=== PATIENT | female | born 1990 | race Caucasian/White ===

== ENCOUNTER 2021-12-13 18:45 | Emergency (ER) | payer OTHER ==
[2021-12-13] MEDS ORDERED: Sodium Chloride 0.9% 10 ML Syringe FLUSH PRN (19:01)
[2021-12-13] MEDS: LORazepam 1 MG Tab PO ONE (19:15)
[2021-12-13] MEDS: Ibuprofen 200 MG Tab PO ONE (19:47)
[2021-12-13 19:59] LABS: ANION GAP 16.5 mmol/L (5-15); CHLORIDE,CL 103 mmol/L (98-107); SODIUM,NA 139 mmol/L (136-145)
[2021-12-13 20:30] LABS: BARBITURATE SCREEN,URINE NEGATIVE (NEGATIVE); BENZODIAZEPINES SCREEN,URINE NEGATIVE (NEGATIVE); BUPRENORPHINE SCREEN,URINE NEGATIVE (NEGATIVE); METHAMPHETAMINE SCREEN, URINE NEGATIVE (NEGATIVE); THC SCREEN,URINE 50 NG/ML NEGATIVE (NEGATIVE)
== END 2021-12-13 21:00 | disposition home or self-care (01) ==
LOC: VM.ED 18:45
DX: R07.89 Other chest pain (principal); F41.0 Panic disorder [episodic paroxysmal anxiety]; F43.9 Reaction to severe stress, unspecified; Z88.5 Allergy status to narcotic agent; Z72.0 Tobacco use; Z20.822 Contact with and (suspected) exposure to COVID-19
CPT/HCPCS: 70450; 71045; 80053; 80305; 80307; 81001; 81025; 83605; 83735; 83880; 84100; 84443; 84484; 85025; 85379; 85610; 85730; 86140; 87635; 93005; 93010; 99284; 99285; A9270; 36415; U0002

== ENCOUNTER 2023-04-29 21:20 | Emergency (ER) | payer OTHER ==
[2023-04-29] MEDS ORDERED: Take Home: traMADol 50 MG, 4 Tab Pack PO ONE (22:47)
== END 2023-04-29 22:55 | disposition home or self-care (01) ==
LOC: VM.ED 21:20
DX: S90.31XA Contusion of right foot, initial encounter (principal); Z79.899 Other long term (current) drug therapy; W18.30XA Fall on same level, unspecified, initial encounter
CPT/HCPCS: 73630-RT; 99283; A9270-GY

== ENCOUNTER 2023-05-28 18:21 | Emergency (ER) | payer OTHER ==
[2023-05-28] MEDS ORDERED: Albuterol/Ipratropium 3.0-0.5 MG/3 ML Neb Soln NEB ONE (19:40)
[2023-05-28 19:49] LABS: BASOPHILS PERCENT AUTO 0.3 % (0.2-1.2); EOSINOPHILS ABSOLUTE AUTO 0.1 x10^3/uL (0.0-0.5); EOSINOPHILS PERCENT AUTO 1.4 % (0.0-4.0); HEMATOCRIT 39.8 % (33.0-47.0); LYMPHOCYTES ABSOLUTE AUTO 2.3 x10^3/uL (1.0-4.8); LYMPHOCYTES PERCENT AUTO 31.9 % (25.0-50.0); MEAN CORPUSCULAR HGB CONC 35.2 g/dL (32.0-36.0); MEAN CORPUSCULAR VOLUME 88.2 fL (78.0-93.0); MONOCYTES ABSOLUTE AUTO 0.6 x10^3/uL (0.0-0.8); MONOCYTES PERCENT AUTO 8.7 % (2.0-11.0); NEUTROPHILS ABSOLUTE AUTO 4.2 x10^3/uL (1.8-7.7); NEUTROPHILS PERCENT AUTO 57.7 % (50.0-80.0); PLATELET COUNT,PLT 233 x10^3/uL (130-400); RED BLOOD CELL COUNT 4.51 x10^6/uL (4.00-5.50); WHITE BLOOD CELL COUNT,WBC 7.2 x10^3/uL (4.0-10.0)
[2023-05-28 20:09] LABS: A/G RATIO 1.27; ALANINE AMINOTRANSFERASE,ALT 31 U/L (14-59); ALBUMIN 4.2 g/dL (3.4-5.0); ALKALINE PHOSPHATASE 57 U/L (46-116); ASPARTATE AMNIOTRANSFERASE,AST 22 U/L (15-37); BILIRUBIN TOTAL 0.4 mg/dL (0.2-1.0); BLOOD UREA NITROGEN,BUN 6 mg/dL (7-18); C-REACTIVE PROTEIN 0.18 mg/dL (<=0.30); CALCIUM 8.5 mg/dL (8.5-10.1); CARBON DIOXIDE,CO2 29 mmol/L (21-32); CHLORIDE,CL 103 mmol/L (98-107); GLUCOSE RANDOM 78 mg/dL (70-99); POTASSIUM,K 3.6 mmol/L (3.5-5.1); PROTEIN TOTAL,TP 7.5 g/dL (6.4-8.2); SODIUM,NA 141 mmol/L (136-145)
[2023-05-28 20:10] LABS: ANION GAP 12.6 mmol/L (5-15); ESTIMATED GFR 75 mL/min (>=60)
[2023-05-28] MEDS ORDERED: Dexamethasone 4 MG/ML SDV IM ONE (21:22)
[2023-05-28] MEDS ORDERED: Azithromycin 250 MG Tab PO STA (21:25)
[2023-05-28] MEDS ORDERED: methylPREDNISolone Sodium Succinate 125 MG/2 ML SDV IVPUSH ONE (21:37)
== END 2023-05-28 21:50 | disposition home or self-care (01) ==
LOC: VM.ED 18:21
DX: J20.9 Acute bronchitis, unspecified (principal); J45.909 Unspecified asthma, uncomplicated; Z79.899 Other long term (current) drug therapy; Z88.5 Allergy status to narcotic agent
CPT/HCPCS: 71046; 80053; 85025; 86140; 94640; 96374; 99285; A9270; J2930; 99284; J7620-GY

== ENCOUNTER 2023-12-26 20:16 | Emergency (ER) | payer OTHER ==
[2023-12-26] MEDS: diphenhydrAMINE 50 MG/ML SDV IM ONE (20:56)
[2023-12-26] MEDS: Metoclopramide 10 MG/2 ML SDV IM ONE (20:57)
[2023-12-26] MEDS: Ketorolac 30 MG/ML SDV IM ONE (20:58)
== END 2023-12-26 21:20 | disposition home or self-care (01) ==
LOC: VM.ED 20:16
DX: G44.209 Tension-type headache, unspecified, not intractable (principal); J45.909 Unspecified asthma, uncomplicated; Z88.5 Allergy status to narcotic agent; Z88.8 Allergy status to other drugs, medicaments and biological substances; Z79.899 Other long term (current) drug therapy
CPT/HCPCS: 96372; 99283; J1200; J1885; J2765

== ENCOUNTER 2024-06-13 12:01 | Emergency (ER) | payer OTHER ==
[2024-06-13 12:50] VITALS: BP 105/75; PULSE 73
== END 2024-06-13 14:15 | disposition home or self-care (01) ==
LOC: VM.ED 12:01
DX: M77.11 Lateral epicondylitis, right elbow (principal); Z79.899 Other long term (current) drug therapy; Z88.5 Allergy status to narcotic agent
CPT/HCPCS: 73080-RT; 99283

== ENCOUNTER 2024-09-19 08:11 | Emergency (ER) | payer OTHER | END 2024-09-19 08:48 | disposition home or self-care (01) | LOC: VM.ED 08:11 | DX: H00.011 Hordeolum externum right upper eyelid (principal); Z91.048 Other nonmedicinal substance allergy status; Z88.5 Allergy status to narcotic agent; Z88.8 Allergy status to other drugs, medicaments and biological substances | CPT/HCPCS: 99283 ==

== ENCOUNTER 2025-03-19 14:48 | Emergency (ER) | payer OTHER ==
[2025-03-19] MEDS ORDERED: Sodium Chloride 0.9% 10 ML Syringe FLUSH PRN (15:06)
[2025-03-19 15:28] LABS: BASOPHILS ABSOLUTE AUTO 0.0 x10^3/uL (0.0-0.2); BASOPHILS PERCENT AUTO 0.1 % (0.2-1.2); EOSINOPHILS ABSOLUTE AUTO 0.0 x10^3/uL (0.0-0.5); EOSINOPHILS PERCENT AUTO 0.4 % (0.0-4.0); IMMATURE GRAN ABSOLUTE AUTO 0.01 x10^3/uL (0.00-0.07); IMMATURE GRAN PERCENT AUTO 0.10 % (0.00-0.43); LYMPHOCYTES ABSOLUTE AUTO 2.0 x10^3/uL (1.0-4.8); LYMPHOCYTES PERCENT AUTO 25.8 % (25.0-50.0); MONOCYTES ABSOLUTE AUTO 0.5 x10^3/uL (0.0-0.8); MONOCYTES PERCENT AUTO 6.4 % (2.0-11.0); NEUTROPHILS ABSOLUTE AUTO 5.1 x10^3/uL (1.8-7.7); NEUTROPHILS PERCENT AUTO 67.2 % (50.0-80.0); PLATELET COUNT,PLT 218 x10^3/uL (130-400); RED BLOOD CELL COUNT 4.54 x10^6/uL (4.00-5.50); WHITE BLOOD CELL COUNT,WBC 7.6 x10^3/uL (4.0-10.0)
[2025-03-19 15:42] LABS: A/G RATIO 1.28; ALANINE AMINOTRANSFERASE,ALT 17.0 U/L (14-59); ASPARTATE AMNIOTRANSFERASE,AST 16.0 U/L (15-37); BILIRUBIN TOTAL 1.2 mg/dL (0.2-1.0); BLOOD UREA NITROGEN,BUN 7.0 mg/dL (7-18); CARBON DIOXIDE,CO2 24.0 mmol/L (21-32); CHLORIDE,CL 102.0 mmol/L (98-107); CREATININE 0.8 mg/dL (0.55-1.02); EST CRCL DRUG DOSING (CG) 76.89 mL/min; GLUCOSE RANDOM 87.0 mg/dL (70-99); POTASSIUM,K 3.5 mmol/L (3.5-5.1); PROTEIN TOTAL,TP 7.3 g/dL (6.4-8.2); SODIUM,NA 139.0 mmol/L (136-145)
[2025-03-19 15:46] LABS: ESTIMATED GFR 98.0 mL/min (>=60)
[2025-03-19 15:51] LABS: APPEARANCE,URINE CLEAR (CLEAR); GLUCOSE,URINE NEGATIVE (NEGATIVE); OCCULT BLOOD,URINE NEGATIVE (NEGATIVE)
[2025-03-19] MEDS: Iopamidol 612 MG/ML 100 ML Bottle IVPUSH ONE (16:28)
== END 2025-03-19 17:24 | disposition home or self-care (01) ==
LOC: VM.ED 14:48
DX: S40.021A Contusion of right upper arm, initial encounter (principal); S40.022A Contusion of left upper arm, initial encounter; S80.11XA Contusion of right lower leg, initial encounter; S80.12XA Contusion of left lower leg, initial encounter; S30.1XXA Contusion of abdominal wall, initial encounter; J45.909 Unspecified asthma, uncomplicated; Z88.5 Allergy status to narcotic agent; Z88.8 Allergy status to other drugs, medicaments and biological substances; Z91.048 Other nonmedicinal substance allergy status; Z79.899 Other long term (current) drug therapy; Y04.0XXA Assault by unarmed brawl or fight, initial encounter
CPT/HCPCS: 74177; 80053; 81003; 81025; 85025; 99284; Q9967

== ENCOUNTER 2025-03-25 16:33 | Emergency (ER) | payer OTHER | END 2025-03-25 18:55 | disposition home or self-care (01) | LOC: VM.ED 16:33 | DX: Z63.0 Problems in relationship with spouse or partner (principal); Z91.048 Other nonmedicinal substance allergy status; Z88.5 Allergy status to narcotic agent; Z88.8 Allergy status to other drugs, medicaments and biological substances; Z79.899 Other long term (current) drug therapy | CPT/HCPCS: 99283; 99284 ==

== ENCOUNTER 2025-06-06 15:18 | Emergency (ER) | payer OTHER | END 2025-06-06 15:45 | disposition home or self-care (01) | LOC: VM.ED 15:18 | DX: J45.909 Unspecified asthma, uncomplicated (principal); Z79.899 Other long term (current) drug therapy; Z88.8 Allergy status to other drugs, medicaments and biological substances; Z88.5 Allergy status to narcotic agent | CPT/HCPCS: 99283; 99284; A9270-GY; J7512 ==